=== PATIENT | male | born 1980 | race Caucasian/White ===

== ENCOUNTER 2016-11-29 04:31 | Emergency (ER) | payer BC ==
[~2016-11-29] VITALS: Ht 177.8 cm; Wt 84.1 kg
[2016-11-29] MEDS ORDERED: CYCL10 PO (04:42)
[2016-11-29] MEDS ORDERED: TAPE50TA2 PO (04:42)
[2016-11-29] MEDS ORDERED: SODIUM CHLORIDE 0.9% 1,000 ML IV ONE (05:00)
[2016-11-29 05:17] LABS: BASOPHILS # (AUTO) 0.07 K/uL (0.00-0.20); BASOPHILS % (AUTO) 1.2 % (0.0-2.0); EOSINOPHILS # (AUTO) 0.14 K/uL (0.00-0.70); EOSINOPHILS % (AUTO) 2.29 % (1.0-6.0); HEMOGLOBIN 15.7 g/dL (13.5-17.5); LYMPHOCYTES # (AUTO) 3.5 K/uL (1.0-4.8); LYMPHOCYTES % (AUTO) 56.3 % (22.0-44.0); MEAN CORPUSCULAR HEMOGLOBIN 30.9 pg (26.0-34.0); MEAN CORPUSCULAR HGB CONC 33.4 G/dL (31.0-37.0); MEAN CORPUSCULAR VOLUME 93 fL (80-100); MONOCYTES # (AUTO) 0.4 K/uL (0.1-1.0); MONOCYTES % (AUTO) 6.8 % (2.0-9.0); NEUTROPHILS # (AUTO) 2.1 K/uL (1.8-7.7); NEUTROPHILS % (AUTO) 33.4 % (40.0-70.0); PLATELET COUNT (AUTO) 226 K/uL (150-450); RED BLOOD CELL COUNT(AUTO) 5.08 MIL/uL (4.50-5.90); RED CELL DISTRIBUTION WIDTH 13.5 % (11.5-14.5); WHITE BLOOD COUNT (AUTO) 6.3 K/uL (4.5-11.0)
[2016-11-29 05:35] LABS: ANION GAP 16 mmol/L (8-16); CALCIUM, TOTAL 8.9 mg/dL (8.8-10.5); CARBON DIOXIDE 24 mmol/L (22-29); CHLORIDE 104 mmol/L (98-107); CREATININE 0.95 mg/dL (0.60-1.30); GLOMERULAR FILTR. RATE CALC > 60 mL/min (>60); POTASSIUM 3.7 mmol/L (3.5-5.1); SODIUM SERUM 144 mmol/L (136-145); UREA NITROGEN, BLOOD 9 mg/dL (7-18)
[2016-11-29 05:40] LABS: ALANINE AMINOTRANSFERASE 48 U/L (12-78); ASPARTATE AMINOTRANSFERASE 36 U/L (15-37); BILIRUBIN,TOTAL 0.2 mg/dL (0.1-1.0); TOTAL PROTEIN, SERUM 7.8 g/dL (6.4-8.2)
[2016-11-29] MEDS ORDERED: KETOROLAC TROMETHAMINE 30 MG/ML VIAL IVP ONE (05:45)
[2016-11-29] MEDS ORDERED: METHOCARBAMOL 500 MG TABLET PO ONE (05:45)
[2016-11-29 05:54] VITALS: BP 133/74
== END 2016-11-29 06:41 | disposition home or self-care (01) ==
LOC: EMS 04:32
DX: F10.220 Alcohol dependence with intoxication, uncomplicated (principal); Y90.8 Blood alcohol level of 240 mg/100 ml or more
CPT/HCPCS: 36415; 80053; 85025; 96361; 96374; 99284; G0480; J1885; J7030

== ENCOUNTER 2019-06-06 09:11 | Inpatient (IN) | payer BC ==
[~2019-06-06] VITALS: Ht 182.9 cm; Wt 84.1 kg
[~2019-06-06 09:11] MED LIST: CYCL10 PO; TAPE50TA2 PO
[2019-06-06] MEDS ORDERED: LIDOCAINE 2% VISCOUS MISC (09:37)
[2019-06-06 10:06] LABS: BASOPHILS % (AUTO) 0.2 % (0.0-2.0); EOSINOPHILS % (AUTO) 0.3 % (1.0-6.0); HEMATOCRIT 45.6 % (41-53); HEMOGLOBIN 15.2 g/dL (13.5-17.5); LYMPHOCYTES # (AUTO) 1.7 K/uL (1.0-4.8); LYMPHOCYTES % (AUTO) 18.3 % (22.0-44.0); MEAN CORPUSCULAR HEMOGLOBIN 30.4 pg (26.0-34.0); MEAN CORPUSCULAR HGB CONC 33.3 G/dL (31.0-37.0); MEAN CORPUSCULAR VOLUME 91 fL (80-100); MONOCYTES # (AUTO) 0.8 K/uL (0.1-1.0); MONOCYTES % (AUTO) 8.8 % (2.0-9.0); NEUTROPHILS # (AUTO) 6.7 K/uL (1.8-7.7); NEUTROPHILS % (AUTO) 72.4 % (40.0-70.0); PLATELET COUNT (AUTO) 250 K/uL (150-450); RED CELL DISTRIBUTION WIDTH 13.8 % (11.5-14.5)
[2019-06-06 10:21] LABS: ALANINE AMINOTRANSFERASE 25 U/L (12-78); ALBUMIN 4.2 g/dL (3.4-5.0); ALKALINE PHOSPHATASE 90 U/L (46-116); ANION GAP 13 mmol/L (8-16); ASPARTATE AMINOTRANSFERASE 24 U/L (15-37); BILIRUBIN,TOTAL 0.5 mg/dL (0.1-1.0); CALCIUM, TOTAL 9.9 mg/dL (8.8-10.5); CARBON DIOXIDE 22 mmol/L (22-29); CHLORIDE 105 mmol/L (98-107); CREATININE 1.23 mg/dL (0.60-1.30); GLOMERULAR FILTR. RATE CALC > 60 mL/min (>60); GLUCOSE,RANDOM 99 mg/dL (70-110); POTASSIUM 4.4 mmol/L (3.5-5.1); SODIUM SERUM 140 mmol/L (136-145); TOTAL PROTEIN, SERUM 8.1 g/dL (6.4-8.2)
[2019-06-06 10:27] LABS: UREA NITROGEN, BLOOD 18 mg/dL (7-18)
[2019-06-06] MEDS ORDERED: LORazepam 2 MG/ML VIAL IM ONE (11:15)
[2019-06-06] MEDS ORDERED: HALOPERIDOL LACTATE 5 MG/ML VIAL IM ONE (11:15)
[2019-06-06] MEDS ORDERED: DiphenhydrAMINE HCL 50 MG/ML VIAL IM ONE (11:15)
[2019-06-06 12:00] LABS: INR 1.1 (0.9-1.1); PROTHROMBIN TIME 11.1 SEC (9.4-11.6)
[2019-06-06 12:02] LABS: AMMONIA < 10 umol/L (11-32); TROPONIN I < 0.02 ng/mL (0.00-0.05)
[2019-06-06 12:34] LABS: CREATINE KINASE, TOTAL ONLY 396 U/L (39-308)
[2019-06-06 12:35] LABS: ACETAMINOPHEN < 2 mcg/mL (10-30)
[2019-06-06 12:37] LABS: SALICYLATE 1.5 mg/dL (2.8-20.0)
[2019-06-06] MEDS ORDERED: LORazepam 2 MG/ML VIAL IVP ONE ×2 (12:45→15:15)
[2019-06-06] MEDS ORDERED: SODIUM CHLORIDE 0.9% 1,000 ML IV ONE (13:00)
[2019-06-06] MEDS ORDERED: KETAMINE HCL 50 MG/ML 10 ML VIAL IVP ONE (13:30)
[2019-06-06 13:42] LABS: AMPHET/METH SCREEN,URINE NEGATIVE (NEGATIVE); BARBITURATE SCREEN, URINE NEGATIVE (NEGATIVE); BENZODIAZEPINES SCREEN,URINE POSITIVE (NEGATIVE); CANNABINOID SCREEN,URINE NEGATIVE (NEGATIVE); COCAINE SCREEN,URINE NEGATIVE (NEGATIVE); METHADONE SCREEN, URINE NEGATIVE (NEGATIVE); OPIATE SCREEN,URINE NEGATIVE (NEGATIVE); PHENCYCLIDINE SCREEN,URINE NEGATIVE (NEGATIVE)
[2019-06-06 13:49] LABS: APPEARANCE,URINE CLOUDY (CLEAR); GLUCOSE, URINE (UA) NEGATIVE (NEGATIVE); KETONES,URINE 40 mg/dL (NEGATIVE); LEUKOCYTE ESTERASE ,URINE NEGATIVE (NEGATIVE); NITRATE,URINE NEGATIVE (NEGATIVE); OCCULT BLOOD,URINE NEGATIVE (NEGATIVE); PROTEIN,URINE POS 1+ (NEGATIVE)
[2019-06-06 13:52] LABS: BILIRUBIN,URINE PRELIM. POSITIVE (NEGATIVE)
[2019-06-06] MEDS ORDERED: ETOMIDATE 2 MG/ML 10 ML VIAL IVP ONE ×2 (14:00→15:15)
[2019-06-06] MEDS ORDERED: MIDAZOLAM HCL 5 MG/ML VIAL ONE (14:32)
[2019-06-06] MEDS ORDERED: ACETAMINOPHEN 325 MG TABLET PO PRN (15:15)
[2019-06-06] MEDS ORDERED: 0.9% SODIUM CHLORIDE 10 ML SYRINGE IVP PRN (15:15)
[2019-06-06] MEDS ORDERED: ONDANSETRON HCL 4 MG/2 ML VIAL IVP PRN (15:15)
[2019-06-06] MEDS ORDERED: MIDAZOLAM HCL 2 MG/2 ML VIAL IVP ONE (15:15)
[2019-06-06 16:14] LABS: ABG A-A DIFF O2 62.5 mmHg (10-20.0); ABG BASE EXCESS -4.3 mmol/L (-2.0-3.0); ABG CARBOXYHEMOGLOBIN 0.4 % (0.0-1.5); ABG HCO3 22.2 mmol/L (22.0-26.0); ABG OXYGEN SATURATION 98.3 % (95.0-98.0); ABG OXYHEMOGLOBIN 97.9 % (94.0-100.0); ABG PCO2 27 mmHg (35-45); ABG PH 7.469 (7.350-7.450); ABG TOTAL HEMOGLOBIN 14.4 G/dL (12.0-18.0); PO2, ARTERIAL BG 133.5 mmHg (92.0-100.0); SOURCE, BLOOD GAS ARTERIAL
[2019-06-06 16:15] LABS: SITE, BLOOD GAS RT BRACHIAL
[2019-06-06 16:16] LABS: O2 DEVICE,BLOOD GAS CANNULA (ROOM AIR)
[2019-06-06 17:00] VITALS: BP 144/72
[2019-06-06 17:30] VITALS: BP 144/72
[2019-06-06 20:00] VITALS: BP 141/71
[2019-06-06] MEDS ORDERED: POTASSIUM CHLORIDE 20 MEQ ER TABLET PO PRN (21:15)
[2019-06-06] MEDS ORDERED: MAGNESIUM SULFATE 2 GM/WATER 50 ML IV PRN (21:15)
[2019-06-06] MEDS ORDERED: MAGNESIUM SULFATE 4 GM/WATER 100 ML IV PRN (21:15)
[2019-06-06] MEDS ORDERED: POTASSIUM CHL 10 MEQ/WATER 50 ML IV PRN (21:15)
[2019-06-06] MEDS ORDERED: MAGNESIUM OXIDE 400 MG TABLET PO PRN (21:15)
[2019-06-06] MEDS ORDERED: LORazepam 2 MG/ML VIAL IVP PRN (21:15)
[2019-06-06] MEDS ORDERED: MAGNESIUM SULFATE 2 GM, MVI, ADULT NO.1 WITH VIT K 10 ML, THIAMINE HCL 100 MG, FOLIC AC... IV ONE ×5 (22:00)
[2019-06-06] MEDS ORDERED: SODIUM CHLORIDE 0.9% 100 ML ONE (22:26)
[2019-06-06] MEDS: SODIUM CHLORIDE 0.9% 1,000 ML IV SCH (22:34)
[2019-06-07] VITALS: BP 104/47
[2019-06-07 04:00] VITALS: BP 117/87
[2019-06-07 05:22] LABS: BASOPHILS % (AUTO) 0.5 % (0.0-2.0); HEMATOCRIT 40.1 % (41-53); HEMOGLOBIN 13.4 g/dL (13.5-17.5); LYMPHOCYTES # (AUTO) 2.2 K/uL (1.0-4.8); LYMPHOCYTES % (AUTO) 25.8 % (22.0-44.0); MEAN CORPUSCULAR HEMOGLOBIN 30.3 pg (26.0-34.0); MEAN CORPUSCULAR HGB CONC 33.4 G/dL (31.0-37.0); MEAN CORPUSCULAR VOLUME 91 fL (80-100); MONOCYTES # (AUTO) 0.9 K/uL (0.1-1.0); MONOCYTES % (AUTO) 10.2 % (2.0-9.0); NEUTROPHILS # (AUTO) 5.3 K/uL (1.8-7.7); NEUTROPHILS % (AUTO) 61.5 % (40.0-70.0); PLATELET COUNT (AUTO) 208 K/uL (150-450); RED BLOOD CELL COUNT(AUTO) 4.43 MIL/uL (4.50-5.90); RED CELL DISTRIBUTION WIDTH 13.5 % (11.5-14.5)
[2019-06-07 05:45] LABS: ALANINE AMINOTRANSFERASE 33 U/L (12-78); ALBUMIN 3.4 g/dL (3.4-5.0); ALKALINE PHOSPHATASE 77 U/L (46-116); ANION GAP 11 mmol/L (8-16); ASPARTATE AMINOTRANSFERASE 76 U/L (15-37); BILIRUBIN,TOTAL 0.7 mg/dL (0.1-1.0); CALCIUM, TOTAL 8.9 mg/dL (8.8-10.5); CARBON DIOXIDE 23 mmol/L (22-29); CHLORIDE 107 mmol/L (98-107); CREATININE 0.92 mg/dL (0.60-1.30); GLOMERULAR FILTR. RATE CALC > 60 mL/min (>60); GLUCOSE,RANDOM 97 mg/dL (70-110); POTASSIUM 3.7 mmol/L (3.5-5.1); SODIUM SERUM 141 mmol/L (136-145); TOTAL PROTEIN, SERUM 6.7 g/dL (6.4-8.2); UREA NITROGEN, BLOOD 15 mg/dL (7-18)
[2019-06-07 08:00] VITALS: BP 164/75
[2019-06-07] MEDS: SODIUM CHLORIDE 0.9% 1,000 ML IV SCH ×2 (09:45→21:18)
[2019-06-07] MEDS ORDERED: SODIUM CHLORIDE 0.9% 1,000 ML IV ONE (11:15)
[2019-06-07 16:00] VITALS: BP 123/55
[2019-06-07] MEDS: TraMADol HCL 50 MG TABLET PO PRN (18:26)
[2019-06-07 20:00] VITALS: BP 136/49
[2019-06-07] MEDS: PREGABALIN 50 MG CAPSULE PO SCH (21:17)
[2019-06-08] VITALS: BP 140/75
[2019-06-08] MEDS: TraMADol HCL 50 MG TABLET PO PRN (04:50)
[2019-06-08 08:52] VITALS: BP 136/60
[2019-06-08] MEDS: PREGABALIN 50 MG CAPSULE PO SCH ×2 (10:18→16:54)
[2019-06-08] MEDS ORDERED: LORazepam 2 MG/ML VIAL IVP PRN (10:30)
[2019-06-08] MEDS: LORazepam 2 MG/ML VIAL IVP PRN (10:48)
[2019-06-08] MEDS ORDERED: ONDANSETRON HCL 4 MG TABLET PO PRN (11:15)
[2019-06-08 12:52] VITALS: BP 155/110
[2019-06-08 16:00] VITALS: BP 100/60
[2019-06-08 19:21] VITALS: BP 148/73
[2019-06-08] MEDS: PREGABALIN 25 MG CAPSULE PO SCH (21:42)
[2019-06-08 23:11] VITALS: BP 143/76
[2019-06-09] MEDS: LORazepam 2 MG/ML VIAL IVP PRN ×2 (00:41→04:47)
[2019-06-09] MEDS: TraMADol HCL 50 MG TABLET PO PRN (00:41)
[2019-06-09 04:48] VITALS: BP 150/85
[2019-06-09 07:56] VITALS: BP 136/82
[2019-06-09] MEDS: PREGABALIN 25 MG CAPSULE PO SCH (08:19)
[2019-06-09] MEDS ORDERED: PREGABALIN 25 MG CAPSULE PO SCH (09:00)
== END 2019-06-09 13:28 | disposition home or self-care (01) | DRG 71 ==
LOC: EMS 09:12 → ICU 15:29 → 5S 06-08 18:03
PROVIDERS: ADMIT Internal Medicine; ATTEND Internal Medicine
DX: G93.40 Encephalopathy, unspecified (principal); M62.82 Rhabdomyolysis; F43.10 Post-traumatic stress disorder, unspecified; F29 Unspecified psychosis not due to a substance or known physiological condition; F19.10 Other psychoactive substance abuse, uncomplicated; Z79.899 Other long term (current) drug therapy
CPT/HCPCS: 36600; 51702; 70450; 70551; 82805; 83735; 87081; 93005; 95816; 96372; 99291; G0238; G0378; G0480; G0481; J1200; J1630; J2060; J2250; J3411; J3475; J3490; J7030; J7050; Q0162